=== PATIENT | male | born 1960 | race Caucasian/White ===

== ENCOUNTER 2016-06-15 09:59 | Outpatient (CLI) | payer OTHER ==
--- NOTE | 2016-06-16 17:41 | DIAGNOSTIC IMAGING REPORT ---
REFERRING PHYSICIAN/PROVIDER: Jenni Cohn MD CONSULTING BUSINESS INTELLIGENCE ARCHITECT: Olivier Tse MD PROCEDURE: M-mode 2D echocardiography with spectral and color flow Doppler TECHNICAL QUALITY: The study quality was technically adequate. INDICATION: EDEMA OF EXTREMITY RHYTHM DURING PROCEDURE: The patient was in normal sinus rhythm during the exam. INTERPRETATIONS: LEFT VENTRICLE: The left ventricle is normal in size. There is mild concentric left ventricular hypertrophy. There is no ventricular septal defect visualized. Left ventricular systolic function is normal without focal wall motion abnormalities. The ejection fraction is estimated to be 60-65%. Assessment of diastolic parameters indicates normal left ventricular diastolic function and normal filling pressures. RIGHT VENTRICLE: The right ventricle is normal in size and function. ATRIA: Both atria are moderately dilated. The interatrial septum is intact with no evidence for an atrial septal defect. MITRAL VALVE: The mitral valve is normal in structure and function. There is no mitral regurgitation. AORTIC VALVE: The aortic valve is grossly normal. Aortic valve opens well. There is trace aortic regurgitation. TRICUSPID VALVE: The tricuspid valve is normal in structure and function. There is mild tricuspid regurgitation. The right ventricular systolic pressure is estimated at 44 mmHg assuming a right atrial pressure of 3 mmHg. PULMONIC VALVE: The pulmonic valve is not well visualized. There is trace or physiologic amount of pulmonic regurgitation. GREAT VESSELS: The aorta root is mildly dilated at 4.1 cm. The ascending aorta cannot be visualized. The IVC is of normal diameter and collapses greater than 50% with the sniff. This suggests a low right atrial pressure of 3 mmHg. PERICARDIUM: There is no pericardial effusion. IMPRESSION: 1. There is mild concentric left ventricular hypertrophy with normal LV ejection fraction. 2. The right ventricle is normal in size and function. 3. Both atria are moderately dilated. 4. There is mild tricuspid regurgitation with RV systolic pressure estimated at 44 mmHg. 5. The aorta root is mildly dilated at 4.1 cm.
== END 2016-06-15 23:00 ==
LOC: US SRH 09:59
DX: I77.819 Aortic ectasia, unspecified site (principal); I07.1 Rheumatic tricuspid insufficiency

== ENCOUNTER 2016-06-16 09:53 | Outpatient (CLI) | payer OTHER ==
--- NOTE | 2016-06-16 10:58 | DIAGNOSTIC IMAGING REPORT ---
PROCEDURE: US VENOUS - BILATERAL EXT INDICATION: EDEMA TECHNIQUE: Duplex sonography of the deep and superficial venous system in both lower extremities was performed. Compression and augmentation techniques were used. The patient was scanned in the upright position. Surveillance of the venous system during Valsalva maneuver when appropriate was performed. COMPARISON: None. FINDINGS: Each interrogated segment of the deep vein demonstrates normal compressibility, augmentation, and normal color Doppler flow without filling defect. No thrombus in either greater saphenous or short saphenous vein. There is no venous reflux in the right greater saphenous vein. The vein measures 9 mm in maximal diameter in the proximal segment. Mid and distal segments measure five and 4 mm respectively. There is no venous reflux in the left greater saphenous vein. The vein measures 6 mm in maximal diameter in the proximal segment. Mid and distal segments measures six and 5 mm respectively There is no venous reflux in the right or left deep system. There is no evidence of intraluminal thrombus. No venous varicosities are seen. IMPRESSION: 1. Normal with no venous insufficiency or deep vein thrombosis bilaterally.
== END 2016-06-16 23:00 ==
LOC: US SRH 09:53
DX: R60.0 Localized edema (principal)

== ENCOUNTER 2016-09-23 12:38 | Outpatient (CLI) | payer OTHER ==
--- NOTE | 2016-09-29 23:49 | DIAGNOSTIC IMAGING REPORT ---
REFERRING PHYSICIAN/PROVIDER: Scarlet ATTENDING PHYSICIAN/PROVIDER: Scarlet CONSULTING LAV CREWMAN: Yasmin Novak MD PROCEDURE PERFORMED: Pharmacologic stress test with myocardial perfusion imaging and quantitative gated SPECT to evaluate wall motion and left ventricular systolic function. INDICATION: CHEST PRESSURE/TIGHTNESS RADIOPHARMACEUTICAL: Stress test 33 mCi Tc 99 Sestamibi Rest dose 33 mCi Tc 99 Sestamibi PROCEDURAL DETAILS: Following informed consent Leixscan was infused per protocol; no ST changes; no ectopy. No chest pain ECG DATA: Rest EKG NSR, normal axis, no LVH, no ST changes RAW DATA: Normal myocardial tracer uptake QUANTITATIVE GATED SPECT: At peak stress EF is 61%; rest EF is 62%; no focal WMA's MYOCARDIAL PERFUSION STUDY: Small mild fixed apical perfusion defect. It is most consistent with apical thinning artifact. IMPRESSION: 1. Normal low risk pharmacologic stress test with myocardial perfusion imaging. 2. Small mild fixed apical perfusion defect, most consistent with apical thinning artifact. 3. Normal wall motion and LV systolic function. No prior study available for comparison.
--- NOTE | 2016-09-29 23:49 | DIAGNOSTIC IMAGING REPORT ---
REFERRING PHYSICIAN/PROVIDER: Scarlet ATTENDING PHYSICIAN/PROVIDER: Scarlet CONSULTING INDUSTRIAL ENGINEERING MANAGER: Yasmin Novak MD PROCEDURE PERFORMED: Pharmacologic stress test with myocardial perfusion imaging and quantitative gated SPECT to evaluate wall motion and left ventricular systolic function. INDICATION: CHEST PRESSURE/TIGHTNESS RADIOPHARMACEUTICAL: Stress test 33 mCi Tc 99 Sestamibi Rest dose 33 mCi Tc 99 Sestamibi PROCEDURAL DETAILS: Following informed consent Leixscan was infused per protocol; no ST changes; no ectopy. No chest pain ECG DATA: Rest EKG NSR, normal axis, no LVH, no ST changes RAW DATA: Normal myocardial tracer uptake QUANTITATIVE GATED SPECT: At peak stress EF is 61%; rest EF is 62%; no focal WMA's MYOCARDIAL PERFUSION STUDY: Small mild fixed apical perfusion defect. It is most consistent with apical thinning artifact. IMPRESSION: 1. Normal low risk pharmacologic stress test with myocardial perfusion imaging. 2. Small mild fixed apical perfusion defect, most consistent with apical thinning artifact. 3. Normal wall motion and LV systolic function. No prior study available for comparison.
== END 2016-09-23 23:00 ==
LOC: RT SRH 12:38
PROC: 4A02XM4 Measurement of Cardiac Total Activity, External Approach (ICD-10-PCS; principal; 2016-09-23)
PROC: 3E033HZ Introduction of Radioactive Substance into Peripheral Vein, Percutaneous Approach (ICD-10-PCS; 2016-09-23)
DX: R07.89 Other chest pain (principal)